=== PATIENT | female | born 1985 | race Caucasian/White ===

== ENCOUNTER 2021-02-12 07:22 | Day surgery (SDC) | payer BC | END 2021-02-12 10:56 | disposition home or self-care (01) | LOC: CSHSDC/OP 07:22 | PROVIDERS: ATTEND Nurse Practitioner Family | DX: Z23 Encounter for immunization (principal); U07.1 COVID-19 | CPT/HCPCS: 96365; J3490; M0243; Q0244 ==

== ENCOUNTER 2021-12-21 09:28 | Inpatient (IN) | payer BC ==
[2021-12-21] MEDS ORDERED: NS w/ Oxytocin 30 units 500 ML ONE (10:09)
[2021-12-21] MEDS ORDERED: Lidocaine 1% (PF) 30 ML VIAL ONE (10:09)
[2021-12-21] MEDS ORDERED: Diphenoxylate HCl/Atropine Tablet PO PRN ×2 (10:18)
[2021-12-21] MEDS ORDERED: Ondansetron PF 4 MG/2 ML Vial IVP PRN ×2 (10:18→16:45)
[2021-12-21] MEDS ORDERED: Lactated Ringer's 1,000 ML IV PRN (10:18)
[2021-12-21] MEDS ORDERED: HYDROcodone/Acetaminophen 5/325 mg Tablet PO PRN ×4 (10:18→16:45)
[2021-12-21] MEDS ORDERED: Methylergonovine 0.2 MG/ML VIAL IM PRN (10:18)
[2021-12-21] MEDS ORDERED: Lidocaine 1% (PF) 30 ML VIAL SC PRN (10:18)
[2021-12-21] MEDS ORDERED: Ibuprofen 800 MG TAB PO PRN (10:18)
[2021-12-21] MEDS ORDERED: Misoprostol 200 MCG TAB PR PRN (10:18)
[2021-12-21] MEDS ORDERED: Carboprost 250 MCG/ML AMP IM PRN (10:18)
[2021-12-21] MEDS ORDERED: hydrALAZINE 20 MG/ML VIAL SLOW IVP PRN ×2 (10:18→16:45)
[2021-12-21] MEDS ORDERED: Promethazine HCl 25 MG/ML VIAL IM PRN (10:18)
[2021-12-21] MEDS ORDERED: NS w/ Oxytocin 30 units 500 ML IV SCH ×2 (10:30→16:45)
[2021-12-21 10:32] LABS: Mean Corpuscular HGB CONC 35.2 g/dL (32.0-36.0); Mean Corpuscular Hemoglobin 33.7 pg (27.0-33.0); Mean Corpuscular Volume 95.7 fl (81.6-98.3); Mean Platelet Volume 11.2 fl (7.4-10.4); Platelet Count 204 10x3/uL (150-450); RBC Distribution Width 12.6 % (11.5-14.5); Red Blood Cell (RBC) Count 4.16 10x6/uL (3.90-5.03); White Blood Cell (WBC) Count 7.9 10x3/uL (3.5-10.5)
[2021-12-21 10:54] VITALS: BMI 28.0
[2021-12-21 11:03] LABS: HBSAg Index 0.24 S/CO (0-0.99); Hep B Surf Ag Non-Reactive S/CO (NonReactive); Syphilis Antibody Nonreactive (Nonreactive); Syphilis Antibody Index 0.06 S/CO (<1.00 Non-Reactive)
[2021-12-21 16:43] LABS: SARS-CoV-2 NAA Rapid Test Not Detected (NotDetected)
[2021-12-21] MEDS ORDERED: Benzocaine-Menthol 82.5 ML CAN TOP PRN (16:45)
[2021-12-21] MEDS ORDERED: Misoprostol 200 MCG TAB VAG PRN (16:45)
[2021-12-21] MEDS ORDERED: Bisacodyl 10 MG SUPP PR PRN (16:45)
[2021-12-21] MEDS ORDERED: Ibuprofen 800 MG TAB PO SCH (16:45)
[2021-12-21] MEDS ORDERED: Lanolin Ointment 7 GM TUBE TOP PRN (16:45)
[2021-12-21] MEDS ORDERED: Milk Of Magnesia 30 ML UDCUP PO PRN (16:45)
[2021-12-21] MEDS ORDERED: Boostrix 0.5 ML (Tdap) VIAL (>/=7 yrs of age) IM ONE (16:45)
[2021-12-21] MEDS: Ferrous Sulfate 325 MG TAB PO SCH (17:40)
[2021-12-21] MEDS: Docusate 100 MG CAP PO SCH (20:24)
[2021-12-22] MEDS: Ibuprofen 800 MG TAB PO SCH ×2 (01:12→09:13)
[2021-12-22] MEDS ORDERED: Prenatal Vitamin 1 TAB PO SCH (09:00)
[2021-12-22] MEDS: Ferrous Sulfate 325 MG TAB PO SCH (09:09)
[2021-12-22] MEDS: Docusate 100 MG CAP PO SCH (09:15)
[2021-12-22 12:42] VITALS: BP 100/58; TEMP 98
== END 2021-12-22 15:15 | disposition home or self-care (01) | DRG 807 ==
LOC: CSHLD/OP 09:28 → CSHLD 10:14 → CSHPP 17:05
PROVIDERS: ADMIT Obstetrics & Gynecology; ATTEND Obstetrics & Gynecology
PROC: 10E0XZZ Delivery of Products of Conception, External Approach (ICD-10-PCS; principal; 2021-12-21)
DX: O69.81X0 Labor and delivery complicated by cord around neck, without compression, not applicable or unspecified (principal); Z37.0 Single live birth; Z20.822 Contact with and (suspected) exposure to COVID-19; Z88.2 Allergy status to sulfonamides; Z3A.40 40 weeks gestation of pregnancy
CPT/HCPCS: 36415; 85027; 86780; 86850; 86900; 86901; 87340; 99285; J2001; J2590; U0002